=== PATIENT | female | born 1935 | race Two or more races ===

== ENCOUNTER 2022-11-23 13:24 | Inpatient (IN) | payer MEDICARE, OTHER ==
[~2022-11-23] VITALS: Ht 172.7 cm; Wt 60.5 kg
[2022-11-23 13:57] LABS: Basophils # (auto) 0.1 10 ^3/uL (0-0.2); Eosinophils # (auto) 0 10 ^3/uL (0-0.8); Eosinophils % (auto) 0.5 % (0.0-7.0); Hemoglobin 15.3 g/dL (12.2-16.2); Lymphocytes # (auto) 1.7 10 ^3/uL (0.4-5.4); Lymphocytes % (auto) 19.9 % (10.0-50.0); Mean Corpuscular Hemoglobin 30.4 pg (28.0-32.0); Mean Corpuscular Hgb Conc. 33.2 g/dL (32.0-36.0); Mean Corpuscular Volume 91.7 fL (80.0-100.0); Monocytes # (auto) 0.6 10 ^3/uL (0-1.3); Monocytes % (auto) 6.5 % (0.0-12.0); Neutrophils # (auto) 6.1 10 ^3/uL (1.6-8.6); Neutrophils % (auto) 72.1 % (37.0-80.0); Nucleated Red Blood Cells % 0.1 %; Red Blood Cells 5.02 10^6/uL (4.0-5.20); Red Cell Distribution Width 14.8 % (11.8-14.3); White Blood Cell 8.5 10^3/uL (4.4-10.8)
[2022-11-23 14:12] LABS: INR 0.95 (0.9-1.15); Partial Thromboplastin Time 26.3 sec (24.6-33.4)
[2022-11-23 14:19] LABS: Albumin 3.8 g/dL (3.4-5.0); Calcium 8.8 mg/dL (8.5-10.1); Potassium 3.8 mmol/L (3.5-5.1)
[2022-11-23 14:24] LABS: BUN/Creatinine Ratio 19.4 (10.0-20.0); Bilirubin, Total 0.8 mg/dL (0.2-1.0); Total Protein 6.8 g/dL (6.4-8.2)
[2022-11-23] MEDS ORDERED: IOHEXOL 350 MG/ML 100ML IJ ONE (14:37)
[2022-11-23] MEDS ORDERED: ALBUTEROL SULF 2.5 MG/0.5ML(0.5%) NEB SOLN NEB ONE (14:45)
[2022-11-23] MEDS ORDERED: IPRATROPIUM BROM 0.5 MG/2.5ML INH SOL NEB ONE (14:45)
[2022-11-23] MEDS ORDERED: LACTATED RINGER'S 500 ML IV ONE (14:45)
[2022-11-23] MEDS ORDERED: DexAMETHasone SOD PHOS 10MG/1ML VIAL INJ IV ONE (14:45)
[2022-11-23 15:35] LABS: Urine Bacteria NONE SEEN /hpf (None Seen); Urine Blood Negative /uL (Negative); Urine Specific Gravity 1.004 (1.001-1.035); Urine WBC 2 /hpf (0 - 5)
[2022-11-23] MEDS ORDERED: ASPirin 81 mg TAB PO ONE ×2 (16:15→17:00)
[2022-11-23] MEDS ORDERED: ACETAMINOPHEN 325 MG TAB PO PRN (17:15)
[2022-11-23] MEDS ORDERED: NITROGLYCERIN 0.4 MG SL TAB SL PRN (17:15)
[2022-11-23] MEDS ORDERED: HYDROcodone-ACET 5/325MG TAB PO PRN (17:15)
[2022-11-23] MEDS ORDERED: DOCUSATE SOD 100 MG CAP PO PRN (17:15)
[2022-11-23] MEDS ORDERED: ONDANSETRON HCL 4 MG/2 ML VIAL IV PRN (17:15)
[2022-11-23] MEDS ORDERED: MORPHINE SULFATE INJ 2 MG/ml SYRG IV PRN (17:15)
[2022-11-23] MEDS ORDERED: LEVO50TA7 PO (17:22)
[2022-11-23] MEDS ORDERED: BENA20TA14 PO (17:22)
[2022-11-23] MEDS ORDERED: BENA10TA15 PO (17:22)
[2022-11-23] MEDS ORDERED: DEXTROSE (50%) 50ML SYRG IV PRN (17:45)
[2022-11-23] MEDS ORDERED: dilTIAZem 25 MG/5 ML VIAL IV ONE (21:30)
[2022-11-23] MEDS: ACCU-CHEK COMFORT CURVE STRIP VI SCH (22:00)
[2022-11-23] MEDS: SODIUM CHLOR 0.9% PF (SALINE LOCK) 10ML VIAL/SYR IV SCH (22:00)
[2022-11-23] MEDS ORDERED: ATORVASTATIN 20 MG TAB PO SCH (22:00)
[2022-11-23] MEDS ORDERED: InsuLIN REG 1unit/0.01ml Soln (100units/ml) SC SCH (22:00)
[2022-11-23] MEDS ORDERED: BENAZEPRIL HCL 10 MG TAB PO SCH (22:00)
[2022-11-23 22:24] VITALS: BP 182/75
[2022-11-23] MEDS ORDERED: dilTIAZem 125 MG/25ML INJ VIAL IV ONE (22:45)
[2022-11-24 05:00] VITALS: BP 125/49
[2022-11-24] MEDS: SODIUM CHLOR 0.9% PF (SALINE LOCK) 10ML VIAL/SYR IV SCH ×2 (06:00→14:00)
[2022-11-24 06:30] LABS: Basophils # (auto) 0 10 ^3/uL (0-0.2); Basophils % (auto) 0.1 % (0.0-2.0); Eosinophils # (auto) 0 10 ^3/uL (0-0.8); Hemoglobin 13.4 g/dL (12.2-16.2); Lymphocytes # (auto) 0.9 10 ^3/uL (0.4-5.4); Lymphocytes % (auto) 8.5 % (10.0-50.0); Mean Corpuscular Hemoglobin 30.7 pg (28.0-32.0); Mean Corpuscular Hgb Conc. 33.4 g/dL (32.0-36.0); Mean Corpuscular Volume 91.9 fL (80.0-100.0); Monocytes # (auto) 0.4 10 ^3/uL (0-1.3); Monocytes % (auto) 3.8 % (0.0-12.0); Neutrophils # (auto) 9.4 10 ^3/uL (1.6-8.6); Neutrophils % (auto) 87.6 % (37.0-80.0); Nucleated Red Blood Cells % 0.1 %; Red Blood Cells 4.36 10^6/uL (4.0-5.20); Red Cell Distribution Width 14.9 % (11.8-14.3); White Blood Cell 10.8 10^3/uL (4.4-10.8)
[2022-11-24] MEDS: ACCU-CHEK COMFORT CURVE STRIP VI SCH ×3 (06:31→17:00)
[2022-11-24] MEDS: InsuLIN REG 1unit/0.01ml Soln (100units/ml) SC SCH ×3 (06:31→17:00)
[2022-11-24] MEDS ORDERED: BENAZEPRIL HCL 10 MG TAB PO SCH (07:00)
[2022-11-24] MEDS ORDERED: LEVOTHYROXINE SODIUM 50 MCG TAB PO SCH (07:00)
[2022-11-24 07:04] LABS: Albumin 2.9 g/dL (3.4-5.0); Calcium 8.8 mg/dL (8.5-10.1); Potassium 3.6 mmol/L (3.5-5.1)
[2022-11-24 07:12] LABS: Bilirubin, Total 0.7 mg/dL (0.2-1.0); Total Protein 5.9 g/dL (6.4-8.2)
[2022-11-24 07:51] VITALS: BP 150/63
[2022-11-24] MEDS ORDERED: ENOXAPARIN SOD 30 MG/0.3 ML SYRINGE SC SCH (10:00)
[2022-11-24] MEDS ORDERED: ASPirin 81 mg TAB PO SCH (10:00)
[2022-11-24 11:59] VITALS: BP 141/58
[2022-11-24] MEDS ORDERED: BENAZEPRIL HCL 10 MG TAB PO ONE (12:00)
[2022-11-24] MEDS ORDERED: ATOR20TA50 PO (13:30)
[2022-11-24] MEDS ORDERED: METO25TA93 PO ×3 (13:30→13:32)
[2022-11-24] MEDS ORDERED: ASPI-325 PO (13:30)
[2022-11-24] MEDS ORDERED: BENA10TA15 PO (13:30)
[2022-11-24 17:00] VITALS: BP 154/72
[2022-11-24 18:24] VITALS: BP 141/58
== END 2022-11-24 19:26 | disposition home or self-care (01) | DRG 310 ==
LOC: ER 13:24 → TELE 17:22 → TELE-CENTR 21:32
PROVIDERS: ADMIT Nurse Practitioner Family; ATTEND Hospitalist
DX: I47.1 Supraventricular tachycardia (principal); E11.9 Type 2 diabetes mellitus without complications; E05.90 Thyrotoxicosis, unspecified without thyrotoxic crisis or storm; J43.9 Emphysema, unspecified; I10 Essential (primary) hypertension; Z96.651 Presence of right artificial knee joint; Z90.49 Acquired absence of other specified parts of digestive tract; Z88.0 Allergy status to penicillin; Z90.13 Acquired absence of bilateral breasts and nipples; Z90.710 Acquired absence of both cervix and uterus
CPT/HCPCS: 36415; 71045; 71275; 80053; 81001; 82962; 83036; 83735; 83880; 84439; 84443; 84484; 85025; 85379; 85610; 85730; 93005; 93306; 94640; 96361; 96374; 97163; G0378; J1100; J1815